=== PATIENT | female | born 1980 | race Caucasian/White ===

== ENCOUNTER 2023-11-16 14:08 | Emergency (ER) | payer OTHER, SELFPAY ==
[2023-11-16 14:24] VITALS: BP 139/82
[2023-11-16 17:01] VITALS: BMI 33.4
[2023-11-16 17:07] VITALS: BP 109/72
[2023-11-16] MEDS: OMNIPAQUE 50 ML PO (17:11)
--- NOTE | 2023-11-16 17:16 | ED.GENMED ---
History of Present Illness
General
Chief Complaint: Abdominal Pain
Source: patient
Time Seen by Provider: 11/16/23 17:00
Travel History
Have you had any contact with someone who has COVID-19?: No
Do you have any symptoms of coronavirus? Fever > 100 degrees, chills, cough, shortness of breath, sore throat, loss of taste or smell, muscle aches, or headache?: No
History of Present Illness
History of Present Illness:
43-year-old female with past medical history of hypothyroidism presenting to the emergency department for evaluation at the end of her primary care physician for right lower quadrant abdominal pain that has been ongoing for the last 3 to 4 weeks but
today symptoms seem to be more sharp and constant. Patient states that earlier in October she had a positive home test and then a negative test so was being worked up as an outpatient with labs and had an ultrasound of the pelvis with
concern for possible ectopic but that these labs did not show any abnormalities and the ultrasound did not show any signs of nor ovarian cyst. Patient had negative lab hCG. Today, patient just notes upon awakening the symptoms
being more constant and sharp associated with constipation stating she has not been going to the bathroom as regular as she normally has. She denies any fevers, chills, rigors, urinary frequency/urgency/dysuria/hematuria. Has not attempted
anything for pain today.
Past History
Past History
ED Past Medical History: Hypothyroidism, Psychiatric (A/D) and Other (IBS)
ED Past Surgical History: Cholecystectomy
Social History
Tobacco: Non-smoker
Alcohol: None
Drug: None
Personal:
Living: with family
Employment: Employed
Review of Systems
Review of Systems
All Other Systems: ROS reviewed and negative except as documented in HPI and ROS
Phy Exam
Physical Exam
Physical Exam:
GENERAL: Alert , in no apparent distress
EYE: clear conjunctiva b/l
HEAD: NCAT
ENT: o/p clr, mmm.
CARDIAC: Regular rate and rhythm .
LUNGS: Clear breath sounds bilaterally, no acute respiratory distress, no wheezes/rales/rhonchi
ABDOMEN: Soft, mild tenderness within the right lower quadrant, no r/g, no cvat
NEUROLOGICAL: Alert and oriented
SKIN: Warm and dry, skin intact.
MUSCULOSKELETAL: well perfused.
PSYCH: Normal and appropriate interaction.
Scores
Heart Failure Risk
Heart Failure Risk Score: Not Applicable
Heart Score for Chest Pain Patients
STEMI patient?: Not applicable
Withdrawal Assessment of Alcohol
Withdrawal Assessment Completed?: Not applicable
Course
Orders/Labs/Results
Orders:
Orders
11/16/23 14:29
Test Result ONCE
11/16/23 17:01
CT Abd/pel (oral only)-[facility] Only Urgent
Comment:
Reason For Exam: RLQ pain
Iohexol [Omnipaque] See Protocol PO NOW STA
11/16/23 17:11
Complete Blood Count/With Diff Urgent
Comprehensive Metabolic Panel Urgent
HCG, Serum Qualitative Screen Urgent
Lipase Urgent
Abnormal Lab Results
11/16/23
17:11
WBC 11.0 H 10^3/uL
(4.8-10.8)
MPV 10.9 H fL
(7.4-10.4)
Absolute Neuts (auto) 6.9 H 10^3/uL
(1.4-6.5)
Sodium 134 L mmol/L
(135-145)
11/16/23 17:11
11/16/23 17:11
Vital Signs
Initial and Last Documented VS:
Initial Vital Signs
Temp Pulse Resp BP Pulse Ox
98.1 F 96 18 139/82 99
11/16/23 14:24 11/16/23 14:24 11/16/23 14:24 11/16/23 14:24 11/16/23 14:24
Last Documented Vital Signs
Temp Pulse Resp BP Pulse Ox
98.1 F 96 18 139/82 99
11/16/23 14:24 11/16/23 14:24 11/16/23 14:24 11/16/23 14:24 11/16/23 14:24
MDM/Problems Addressed
Differential Diagnosis Includes:
Ovarian cyst, kidney stone, appendicitis, muscular etiology
MDM/Problems Addressed:
43-year-old female presenting emergency department for evaluation of right lower quadrant abdominal pain after going to her primary care physician today and primary care recommending she come to the ER for a stat CT of the abdomen and pelvis.
Patient with recent workup as an outpatient with labs and an ultrasound which did not show any abnormalities. Will check labs and a CT. Urine ordered as well. Patient declining anything for pain.
*Radiology
Radiology exam reviewed: radiology read reviewed
*Pulse Oximetry
Patient hypoxic: no
*Critical Care Note
Total Time (30-74mins, 75-104mins- exclusive of procedures): Not Applicable
Data Reviewed
Review of Other/Old Records Reveals: Labs and Radiology Studies
Patient Management
Escalation/DeEscalation of care consider admission/obs:
Patient CT scan shows no acute pathology of the abdomen or pelvis. Patient was provided with printout of CT report to bring back with her to her primary care provider. Encourage close follow-up. NSAIDs/Tylenol as needed for pain. Aware of return
precautions but otherwise stable for discharge home.
ED Attending Note
-
Portions of this chart may have been created with voice recognition software.� Occasional wrong word or��sound alike� substitutions may have occurred due to the inherent limitations of voice recognition software.
Discharge Plan
Departure
Patient Disposition: Home (Routine Discharge)
Date of Disposition: 11/16/23
Time of Disposition: 21:10
Patient with high blood pressure during this ER visit?: Yes
Discharge Problem:
Abdominal pain
Instructions: Abdominal Pain
Prescriptions:
No Action
sertraline 100 MG tablet
100 mg PO DAILY
clonazepam 0.5 MG tablet
0.5 mg PO BID
Referrals:
Lizy Serrano MD [Family Provider] -
Interventions
Interventions:
*Risk Screen - Suicide Last Done: 11/16/23 17:01
*General Assessment Last Done: 11/16/23 17:01
*Neglect/Abuse Screening Last Done: 11/16/23 17:01
*ED COVID-19 Vaccine History Last Done: 11/16/23 17:01
[facility] Assessment Last Done: 11/16/23 17:01
Discharge Date and Time
Print Language: INDIAN
[2023-11-16 17:28] LABS: % Basophils 0.6 % (0-2); % Eosinophils 2.4 % (0-6); % Immature Granulocytes 0.4 % (0-0.5); % Lymphocytes 28.6 % (20.5-51.1); % Monocytes 5.4 % (1.7-9.3); % Neutrophils 62.6 % (42.2-75.2); Absolute Basophils 0.1 10^3/uL (0-0.2); Absolute Eosinophils 0.3 10^3/uL (0-0.7); Absolute Lymphocytes 3.2 10^3/uL (1.2-3.4); Absolute Monocytes 0.6 10^3/uL (0.1-0.6); Absolute Neutrophils 6.9 10^3/uL (1.4-6.5); Hematocrit 39.9 % (37.0-47.0); Hemoglobin 13.5 g/dL (12.0-16.0); Mean Corp Hgb Conc. 33.8 g/dL (33.0-37.0); Mean Corpuscular Hgb 27.5 pg (27.0-31.0); Mean Corpuscular Volume 81.3 fL (81.0-99.0); Mean Platelet Volume 10.9 fL (7.4-10.4); Nucleated Red Blood Cells % 0 %; Platelet Count 351 10^3/uL (130-400); Red Blood Cell Count 4.91 10^6/uL (4.20-5.40); Red Cell Dist. Width 13.4 % (11.5-14.5)
[2023-11-16 17:33] LABS: HCG, Serum Qualitative Screen Negative
[2023-11-16 17:37] LABS: ALT (SGPT) 22 U/L (0-35); AST (SGOT) 24 U/L (14-36); Albumin 4.6 g/dl (3.5-5.0); Alkaline Phosphatase 75 U/L (38-126); Blood Urea Nitrogen 11 mg/dl (7-17); Calcium 9.9 mg/dl (8.4-10.2); Carbon Dioxide 25 mmol/L (22-30); Chloride 102 mmol/L (98-107); Estimated Creatinine Clearance 109 ml/min; Glucose 96 mg/dl (70-99); Lipase 44 U/L (23-300); Potassium 4.6 mmol/L (3.5-5.1); Sodium 134 mmol/L (135-145); Total Bilirubin 0.7 mg/dl (0.2-1.3); Total Protein 7.2 g/dl (6.3-8.2); eGFR > 60.00
[2023-11-16 18:00] VITALS: BP 115/91
[2023-11-16 19:00] VITALS: BP 116/75
== END 2023-11-16 21:47 | disposition home or self-care (01) ==
LOC: EMR 14:08
PROVIDERS: Student in an Organized Health Care Education/Training Program; EMERGENCY PHYSICIAN Emergency Medicine; FAMILY PHYSICIAN Family Medicine
DX: R10.31 Right lower quadrant pain (principal); R03.0 Elevated blood-pressure reading, without diagnosis of hypertension; E03.9 Hypothyroidism, unspecified
CPT/HCPCS: 99284; 74176; 80053; 83690; 84703; 85025

== ENCOUNTER → 2025-01-15 15:37 | Outpatient (REF) | payer OTHER, SELFPAY | LOC: RAD 15:37 | PROVIDERS: ATTENDING PHYSICIAN Student in an Organized Health Care Education/Training Program; FAMILY PHYSICIAN Family Medicine | DX: M79.671 Pain in right foot (principal); M79.661 Pain in right lower leg | CPT/HCPCS: 93971 ==